=== PATIENT | female | born 1975 | race Caucasian/White ===

== ENCOUNTER 2017-12-11 11:26 | Emergency (ER) | payer MEDICAID ==
[~2017-12-11] VITALS: Ht 172.7 cm; Wt 85.0 kg
[2017-12-11] MEDS ORDERED: FAMOTIDINE 20MG TABLET PO NR (13:08)
[2017-12-11] MEDS ORDERED: DIPHENHYDRAMINE 50MG/ML VIAL IV ONE (13:15)
[2017-12-11] MEDS ORDERED: FAMOTIDINE 20MG/2ML VIAL IV SCH (13:15)
[2017-12-11] MEDS ORDERED: DIPHENHYDRAMINE 50MG CAPSULE PO ONE (13:30)
[2017-12-11 14:01] VITALS: BP 120/68
== END 2017-12-11 14:02 | disposition home or self-care (01) ==
LOC: ER 12:15
DX: L50.8 Other urticaria (principal); R21 Rash and other nonspecific skin eruption; Z98.890 Other specified postprocedural states; Z91.013 Allergy to seafood
CPT/HCPCS: 99283; Q0163

== ENCOUNTER 2021-11-13 20:03 | Emergency (ER) | payer MEDICAID, OTHER ==
[~2021-11-13] VITALS: Ht 172.7 cm; Wt 92.4 kg
[2021-11-13] MEDS ORDERED: MAGNESIUM/ALUMINUM HYDROXIDE/SIMETHICONE 30ML UDC PO STA (21:10)
[2021-11-13] MEDS ORDERED: DICYCLOMINE 10 MG/5 ML ORAL SYR PO STA (21:10)
[2021-11-13 23:00] LABS: CLARITY URINE CLEAR (CLEAR); COLOR URINE YELLOW (YELLOW); KETONES URINE NEGATIVE (NEGATIVE); LEUKOCYTE ESTERASE URINE NEGATIVE (NEGATIVE); NITRITE URINE NEGATIVE (NEGATIVE); OCCULT BLOOD URINE NEGATIVE (NEGATIVE); PH URINE 7.5 (4.5-8.0); PROTEIN URINE NEGATIVE (NEGATIVE); SPECIFIC GRAVITY URINE 1.015 (1.005-1.030); UROBILINOGEN URINE 0.2 E.U./dL (0.2-1.0)
[2021-11-14 00:06] LABS: BASOPHILS % 0.4 % (0.0-2.0); HEMATOCRIT. 38.4 % (36.0-48.0); HEMOGLOBIN. 13.3 g/dL (12.0-16.0); LYMPHOCYTES % 32.9 % (20.0-50.0); MEAN CORPUSCULAR HEMOGLOBIN 30.4 pg (28.0-32.0); MEAN PLATELET VOLUME 6.5 fl (7.4-10.4); MONOCYTES % 8.6 % (2.0-8.0); NEUTROPHILS % 56.1 % (40.0-76.0); PLATELET 290 x1000/uL (130-400); RED BLOOD CELL COUNT 4.37 mill/uL (4.2-5.4)
[2021-11-14 00:12] LABS: CHLORIDE 109 mEq/L (98-107)
[2021-11-14 00:28] VITALS: BP 137/83
[2021-11-14] MEDS ORDERED: FAMO-135 MT (00:31)
[2021-11-14] MEDS ORDERED: DICYCLOMINE HCL 10MG CAPSULE PO NR (00:45)
== END 2021-11-14 01:03 | disposition home or self-care (01) ==
LOC: ER 20:14
DX: R10.13 Epigastric pain (principal); R11.2 Nausea with vomiting, unspecified; Z98.890 Other specified postprocedural states
CPT/HCPCS: 36415; 76700; 80053; 81003; 81025; 85025; 93005; 99285